=== PATIENT | male | born 1950 | race Caucasian/White ===

== ENCOUNTER 2017-09-02 14:46 | Inpatient (IN) | payer MEDICARE, OTHER ==
[~2017-09-02] VITALS: Ht 170.2 cm; Wt 80.6 kg
[2017-09-02 15:22] LABS: Source, Urine Clean Catch
[2017-09-02 15:24] LABS: Influenza A Negative (NEGATIVE); Influenza B Negative (NEGATIVE)
[2017-09-02 15:24] LABS: Appearance, Urine Hazy (Clear); Blood, Urine 3+ (Neg); Color, Urine Yellow (P-Yellow); Glucose Qualitative, Urine 1+ (Neg); Ketones, Urine 1+ (Neg); Leukocyte Esterase, Urine 2+ (Neg); Nitrite, Urine Neg (Neg); Protein, Urine 3+ (Neg); Specific Gravity, Urine 1.025 (1.003-1.022); Urobilinogen, Urine 2+ (Normal)
[2017-09-02 15:33] LABS: Bilirubin, Urine 2+ (Neg)
[2017-09-02 15:46] LABS: BASOPHILS ABSOLUTE AUTO 0.01 K/mm3 (0.00-0.23); BASOPHILS PERCENT AUTO 0 % (0-2); EOSINOPHILS PERCENT AUTO 0 % (0-6); Hematocrit 42.6 % (37.0-53.0); Hemoglobin 15.6 g/dL (13.5-17.5); IMMATURE GRAN ABSOLUTE AUTO 0.03 K/mm3 (0.00-0.10); IMMATURE GRAN PERCENT AUTO 0 % (0-1); LYMPHOCYTES PERCENT AUTO 10 % (21-46); MONOCYTES ABSOLUTE AUTO 0.73 K/mm3 (0.16-1.47); MONOCYTES PERCENT AUTO 11 % (4-13); Mean Corpuscular HGB 30.2 pg (26.0-34.0); Mean Corpuscular HGB Conc 36.6 g/dL (31.5-36.5); Mean Corpuscular Volume 82 fL (80-100); Mean Platelet Volume 10.8 fL (9.1-12.4); NEUTROPHILS ABSOLUTE AUTO 5.51 K/mm3 (1.96-9.15); NEUTROPHILS PERCENT AUTO 79 % (41-73); Platelet Count 200 K/mm3 (150-400); Red Blood Cell Count 5.17 M/mm3 (4.30-5.90); White Blood Cell Count 6.98 K/mm3 (4.00-11.30)
[2017-09-02 15:48] LABS: Amorphous Light (0-Heavy); Bacteria Few /hpf; Squamous Epithelial Cells Mod /hpf (Few)
[2017-09-02 16:00] LABS: Alanine Aminotransfer (ALT/SGP 39 U/L (12-78); Albumin, Blood 3.5 g/dL (3.4-5.0); Albumin/Globulin Ratio 0.7 (0.8-1.8); Alk Phos 90 U/L (50-136); Anion Gap 12 mmol/L (6-16); Aspartate Aminotrans (AST/SGOT 38 U/L (12-37); Bilirubin, Total 1.9 mg/dL (0.1-1.0); Blood Urea Nitrogen 38 mg/dL (8-24); Bun/Creatinine Ratio 27.7 (12.0-20.0); CO2, Blood 26 mmol/L (21-32); Calcium, Blood 8.3 mg/dL (8.5-10.1); Chloride, Blood 90 mmol/L (98-108); Creatinine, Blood 1.37 mg/dL (0.60-1.20); Globulin, Blood 5.1 g/dL (2.2-4.0); Glomerular Filtration Rate 55 (60-); Glucose, Blood 259 mg/dL (70-99); Potassium, Blood 3.7 mmol/L (3.5-5.5); Sodium, Blood 128 mmol/L (136-145); Total Protein, Blood 8.6 g/dL (6.4-8.2); Troponin I <0.015 ng/mL (0.000-0.040)
[2017-09-02] MEDS ORDERED: ATOR80 PO (16:58)
[2017-09-02] MEDS ORDERED: LEVSOD150 PO (16:58)
[2017-09-02] MEDS ORDERED: Zestril40 MG (16:58)
[2017-09-02] MEDS ORDERED: PIOG30 PO (16:59)
[2017-09-02] MEDS ORDERED: Mobic15 MG PO (16:59)
[2017-09-02 22:33] LABS: Source, Urine Clean Catch
[2017-09-02 22:39] LABS: Bilirubin, Urine Neg (Neg); Blood, Urine 2+ (Neg); Glucose Qualitative, Urine Neg (Neg); Ketones, Urine Neg (Neg); Leukocyte Esterase, Urine 1+ (Neg); Nitrite, Urine Neg (Neg); Protein, Urine 2+ (Neg); Urobilinogen, Urine 1+ (Normal)
[2017-09-02 22:46] LABS: Appearance, Urine Clear (Clear); Color, Urine Yellow (P-Yellow); Red Blood Cells, Urine Rare /hpf (0-2)
[2017-09-02 22:47] LABS: Bacteria Not Seen /hpf; Squamous Epithelial Cells Not Seen /hpf (Few)
[2017-09-02] MEDS ORDERED: METF500C PO (22:58)
[2017-09-03 04:30] LABS: BASOPHILS ABSOLUTE AUTO 0.01 K/mm3 (0.00-0.23); BASOPHILS PERCENT AUTO 0 % (0-2); EOSINOPHILS PERCENT AUTO 0 % (0-6); Hematocrit 33.5 % (37.0-53.0); Hemoglobin 12.2 g/dL (13.5-17.5); IMMATURE GRAN ABSOLUTE AUTO 0.02 K/mm3 (0.00-0.10); IMMATURE GRAN PERCENT AUTO 0 % (0-1); LYMPHOCYTES ABSOLUTE AUTO 1.02 K/mm3 (0.84-5.20); LYMPHOCYTES PERCENT AUTO 18 % (21-46); MONOCYTES ABSOLUTE AUTO 0.59 K/mm3 (0.16-1.47); MONOCYTES PERCENT AUTO 10 % (4-13); Mean Corpuscular HGB 30.5 pg (26.0-34.0); Mean Corpuscular HGB Conc 36.4 g/dL (31.5-36.5); Mean Corpuscular Volume 84 fL (80-100); NEUTROPHILS ABSOLUTE AUTO 4.15 K/mm3 (1.96-9.15); NEUTROPHILS PERCENT AUTO 72 % (41-73); Platelet Count 176 K/mm3 (150-400); RDW Standard Deviation 39.8 fL (35.1-46.3); White Blood Cell Count 5.79 K/mm3 (4.00-11.30)
[2017-09-03 04:54] LABS: Anion Gap 10 mmol/L (6-16); Blood Urea Nitrogen 31 mg/dL (8-24); Bun/Creatinine Ratio 34.5 (12.0-20.0); CO2, Blood 27 mmol/L (21-32); Calcium, Blood 7.2 mg/dL (8.5-10.1); Chloride, Blood 97 mmol/L (98-108); Glomerular Filtration Rate >60 (60-); Glucose, Blood 188 mg/dL (70-99); Potassium, Blood 3.2 mmol/L (3.5-5.5); Sodium, Blood 134 mmol/L (136-145)
[2017-09-03 12:58] LABS: Percent Saturation 10.5 % (20.0-50.0)
[2017-09-04 04:56] LABS: BASOPHILS ABSOLUTE AUTO 0.01 K/mm3 (0.00-0.23); BASOPHILS PERCENT AUTO 0 % (0-2); EOSINOPHILS ABSOLUTE AUTO 0.01 K/mm3 (0.00-0.68); EOSINOPHILS PERCENT AUTO 0 % (0-6); Hemoglobin 11.6 g/dL (13.5-17.5); IMMATURE GRAN ABSOLUTE AUTO 0.04 K/mm3 (0.00-0.10); IMMATURE GRAN PERCENT AUTO 1 % (0-1); LYMPHOCYTES ABSOLUTE AUTO 1.37 K/mm3 (0.84-5.20); LYMPHOCYTES PERCENT AUTO 26 % (21-46); MONOCYTES ABSOLUTE AUTO 0.54 K/mm3 (0.16-1.47); MONOCYTES PERCENT AUTO 10 % (4-13); Mean Corpuscular HGB 30.7 pg (26.0-34.0); Mean Corpuscular HGB Conc 36.3 g/dL (31.5-36.5); Mean Corpuscular Volume 85 fL (80-100); Mean Platelet Volume 10.5 fL (9.1-12.4); NEUTROPHILS ABSOLUTE AUTO 3.28 K/mm3 (1.96-9.15); NEUTROPHILS PERCENT AUTO 62 % (41-73); Platelet Count 185 K/mm3 (150-400); RDW Coefficient Variation 13.1 % (11.7-14.2); RDW Standard Deviation 40.7 fL (35.1-46.3); Red Blood Cell Count 3.78 M/mm3 (4.30-5.90); White Blood Cell Count 5.25 K/mm3 (4.00-11.30)
[2017-09-04 05:11] LABS: Anion Gap 8 mmol/L (6-16); Blood Urea Nitrogen 13 mg/dL (8-24); Bun/Creatinine Ratio 20.1 (12.0-20.0); CO2, Blood 26 mmol/L (21-32); Chloride, Blood 104 mmol/L (98-108); Creatinine, Blood 0.65 mg/dL (0.60-1.20); Glomerular Filtration Rate >60 (60-); Glucose, Blood 126 mg/dL (70-99); Potassium, Blood 3.1 mmol/L (3.5-5.5); Sodium, Blood 138 mmol/L (136-145)
== END 2017-09-04 17:50 | disposition home or self-care (01) | DRG 871 ==
LOC: ER 14:46 → PCU 21:00 → MEDS 22:00 → PCU 22:20 → MEDS 09-03 18:07
PROVIDERS: Emergency Medicine; Internal Medicine; Nurse Practitioner Acute Care
DX: A41.9 Sepsis, unspecified organism (principal); J18.9 Pneumonia, unspecified organism; N17.9 Acute kidney failure, unspecified; E87.1 Hypo-osmolality and hyponatremia; R65.20 Severe sepsis without septic shock; E03.9 Hypothyroidism, unspecified; E78.5 Hyperlipidemia, unspecified; Z66 Do not resuscitate; E11.65 Type 2 diabetes mellitus with hyperglycemia; E11.22 Type 2 diabetes mellitus with diabetic chronic kidney disease; I12.9 Hypertensive chronic kidney disease with stage 1 through stage 4 chronic kidney disease, or unspecified chronic kidney disease; N18.1 Chronic kidney disease, stage 1; D63.1 Anemia in chronic kidney disease; E86.0 Dehydration
CPT/HCPCS: 36415; 71046; 80048; 80053; 81001; 82728; 82947; 83540; 83550; 83605; 83880; 84484; 85025; 87086; 87449; 87804; 93005; 93010; 96365; 96375; 99285; J1644; J1815; J1956; J2405; J7030; J7040

== ENCOUNTER 2020-01-03 23:08 | Emergency (ER) | payer MEDICARE, OTHER ==
[~2020-01-03] VITALS: Ht 177.8 cm; Wt 102.1 kg
[~2020-01-03 23:08] MED LIST: ATOR80 PO; Aspir-Low81 MG PO; LEVSOD150 PO; METF500C PO; Mobic15 MG PO; PIOG30 PO; Zestril40 MG
[2020-01-03 23:30] LABS: BASOPHILS ABSOLUTE AUTO 0.03 K/mm3 (0.00-0.23); BASOPHILS PERCENT AUTO 0 % (0-2); EOSINOPHILS ABSOLUTE AUTO 0.16 K/mm3 (0.00-0.68); EOSINOPHILS PERCENT AUTO 2 % (0-6); Hematocrit 40.1 % (37.0-53.0); Hemoglobin 14.2 g/dL (13.5-17.5); IMMATURE GRAN ABSOLUTE AUTO 0.02 K/mm3 (0.00-0.10); IMMATURE GRAN PERCENT AUTO 0 % (0-1); LYMPHOCYTES ABSOLUTE AUTO 2.56 K/mm3 (0.84-5.20); LYMPHOCYTES PERCENT AUTO 34 % (21-46); MONOCYTES ABSOLUTE AUTO 0.64 K/mm3 (0.16-1.47); MONOCYTES PERCENT AUTO 8 % (4-13); Mean Corpuscular HGB 31.5 pg (26.0-34.0); Mean Corpuscular HGB Conc 35.4 g/dL (31.5-36.5); Mean Corpuscular Volume 89 fL (80-100); Mean Platelet Volume 10.5 fL (9.1-12.4); NEUTROPHILS ABSOLUTE AUTO 4.17 K/mm3 (1.96-9.15); NEUTROPHILS PERCENT AUTO 55 % (41-73); Platelet Count 166 K/mm3 (150-400); RDW Standard Deviation 42.5 fL (35.1-46.3); Red Blood Cell Count 4.51 M/mm3 (4.30-5.90); White Blood Cell Count 7.58 K/mm3 (4.00-11.30)
[2020-01-03 23:45] LABS: Anion Gap 9 mmol/L (6-16); Blood Urea Nitrogen 18 mg/dL (8-24); Bun/Creatinine Ratio 26.2 (12.0-20.0); CO2, Blood 24 mmol/L (21-32); Calcium, Blood 8.3 mg/dL (8.5-10.1); Chloride, Blood 106 mmol/L (98-108); Creatinine, Blood 0.69 mg/dL (0.60-1.20); Glomerular Filtration Rate >60 (60-); Glucose, Blood 292 mg/dL (70-99); Potassium, Blood 3.5 mmol/L (3.5-5.5); Sodium, Blood 139 mmol/L (136-145)
== END 2020-01-04 01:25 | disposition home or self-care (01) ==
LOC: ER 23:08
PROVIDERS: Emergency Medicine
DX: F10.129 Alcohol abuse with intoxication, unspecified (principal); I10 Essential (primary) hypertension; Z79.82 Long term (current) use of aspirin; Z79.84 Long term (current) use of oral hypoglycemic drugs; Z79.899 Other long term (current) drug therapy
CPT/HCPCS: 70450; 80048; 85025; 96360; 96361; 99285-25; A9270-GY; J7030

== ENCOUNTER 2022-07-17 14:06 | Inpatient (IN) | payer MEDICARE, OTHER ==
[~2022-07-17] VITALS: Ht 170.2 cm; Wt 86.9 kg
[~2022-07-17 14:06] MED LIST changes: +ASPIR 8181 M1 PO; -Aspir-Low81 MG PO
[2022-07-17 14:51] LABS: BASOPHILS ABSOLUTE AUTO 0.05 K/mm3 (0.00-0.23); BASOPHILS PERCENT AUTO 1 % (0-2); EOSINOPHILS ABSOLUTE AUTO 0.17 K/mm3 (0.00-0.68); EOSINOPHILS PERCENT AUTO 2 % (0-6); Hemoglobin 15.3 g/dL (13.5-17.5); IMMATURE GRAN ABSOLUTE AUTO 0.02 K/mm3 (0.00-0.10); IMMATURE GRAN PERCENT AUTO 0 % (0-1); LYMPHOCYTES ABSOLUTE AUTO 1.78 K/mm3 (0.84-5.20); LYMPHOCYTES PERCENT AUTO 25 % (21-46); MONOCYTES ABSOLUTE AUTO 0.61 K/mm3 (0.16-1.47); MONOCYTES PERCENT AUTO 9 % (4-13); Mean Corpuscular HGB 31.2 pg (26.0-34.0); Mean Corpuscular HGB Conc 35.6 g/dL (31.5-36.5); Mean Corpuscular Volume 88 fL (80-100); Mean Platelet Volume 11.3 fL (9.1-12.4); NEUTROPHILS PERCENT AUTO 63 % (41-73); Platelet Count 231 K/mm3 (150-400); RDW Coefficient Variation 12.3 % (11.7-14.2); RDW Standard Deviation 39.4 fL (35.1-46.3); Red Blood Cell Count 4.91 M/mm3 (4.30-5.90); White Blood Cell Count 7.03 K/mm3 (4.00-11.30)
[2022-07-17] MEDS ORDERED: JARDIANCE10 MG PO (15:01)
[2022-07-17] MEDS ORDERED: EUTHYROX125 MC1 PO (15:02)
[2022-07-17] MEDS ORDERED: METFORMIN HCL500 M3 PO (15:02)
[2022-07-17] MEDS ORDERED: AMLODIPINE BESYL5 MG PO (15:02)
[2022-07-17] MEDS ORDERED: OMEP20ER PO (15:03)
[2022-07-17 15:15] LABS: Albumin/Globulin Ratio 0.9 (0.8-1.8); Bilirubin, Total 1.7 mg/dL (0.1-1.0); Bun/Creatinine Ratio 20.2 (12.0-20.0); Calcium, Blood 9.2 mg/dL (8.5-10.1); Creatinine, Blood 0.79 mg/dL (0.60-1.20); Globulin, Blood 4.5 g/dL (2.2-4.0); Total Protein, Blood 8.5 g/dL (6.4-8.2)
[2022-07-17 18:43] VITALS: BP 153/88
[2022-07-17 19:30] VITALS: BP 138/76
[2022-07-18] VITALS (7 sets, daily range): BP systolic 139–175; BP diastolic 76–90
--- NOTE | 2022-07-18 02:35 | NUR ---
PT HAS HAD TELEMETRY MONITORING IN PLACE THROUGHOUT SHIFT. WITHIN PAST HALF HOUR, PT BRIEFLY DIPPED DOWN TO ~41 BPM WHILE SLEEPING. ASYMPTOMATIC, CONTINUED TO REST PEACEFULLY DURING EVENT. NOTIFIED HOSPITALIST DR. CROSS. DIRECTED TO DC ANY BETA BLOCKERS AND CONTINUE TO MONITOR. NO BETA BLOCKERS CURRENTLY ORDERED. WILL CONTINUE TO MONITOR.
--- NOTE | 2022-07-18 03:41 | NUR ---
SHIFT MOSTLY UNREMARKABLE. PT FAMILY WAS IN ROOM UNTIL CLOSE TO MIDNIGHT. LONG DISCUSSION WITH FAMILY REGARDING PT CODE STATUS. PT AND FAMILY WOULD LIKE TO HAVE HIM DOWN A FULL CODE WITH POWER OF DECISION MAKING TO BE LEFT TO HIS SHOULD HE BE UNABLE TO MAKE DECISIONS FOR HIMSELF. CALLED HOSPITALIST AND GOT ORDER TO MAKE PT FULL CODE. PROVIDED PT WITH ADVANCE DIRECTIVES FORMS TO SIGN AND BROCHURE EXPLAINING SPECIFICS. PT VOICED UNDERSTANDING. TELE ON THROUGH EVENING. WNL OUTSIDE OF BRIEF EPISODE OF BRADYCARDIA EARLY THIS MORNING. SEE RELATED NOTE FOR DETAILS. PT HAS BEEN NPO SINCE MIDNIGHT PENDING POSSIBLE ANGIOGRAM THIS AFTERNOON. CALLED FOR CARDIOLOGY CONSULT. SHIFT OTHERWISE UNREMARKABLE. BED LOCKED IN LOWEST POSITION. CALL LIGHT LEFT WITHIN REACH.
[2022-07-18 08:28] LABS: Bun/Creatinine Ratio 25.7 (12.0-20.0); Calcium, Blood 8.4 mg/dL (8.5-10.1); Creatinine, Blood 0.74 mg/dL (0.60-1.20); Potassium, Blood 3.7 mmol/L (3.5-5.5)
--- NOTE | 2022-07-18 17:22 | NUR ---
PT TRANSFERED FROM MEDICAL FLOOR TO INTERACTIVE PROJECT MANAGER FOR ANGIOGRAM AT APPROXIMATELY 1530. WILL CONTINUE RECEIVING CARE IN PROGRESSIVE CARE UNIT FOLLOWING PROCEDURE.
--- NOTE | 2022-07-18 18:30 | NUR ---
RN DAY SHIFT SUMMARY PATIENT COMES TO PCU FROM THE HC FOLLOWING ANGIO. PATIENT IS ALERT AND WELL MANORED WITH VITALS Q15M AND CONTINUEING VIA PROTOCOL. PATIENT IS CURRENTLY EATING DINNER WILE BEING VISITED BY FAMILY.
--- NOTE | 2022-07-18 21:41 | NUR ---
TRANSFER OF CARE NOTE PT IS A/Ox4 AND COOPERATIVE WITH CARE PROVIDED BY [facility] OF STAFF. ANSWERS QUESTIONS APPROPRIATELY AND ABLE TO MAKE HIS NEEDS KNOWN. EMS ARRIVED ~2100 THIS PM PENDING PT TRANSFER TO [facility] FOR CONTINUATION OF CARE. FIDEL WILKES, HR IS SB-SR 50-60'S WITH NO REPORTS OF CP OR PRESSURE DURING MY TIME WITH THE PT. SBP HAS BEEN SLIGHTLY ELEVATED IN THE 150-160'S. RESPIRATORY WILKES, MAINTAINS SPO2 >94% ON RA WITH NO C/O SOB OR DYSPNEA. PT WAS ABLE TO STAND UP AND TRANSFER TO [facility] W/O ASSITANCE. RIGHT RADIAL ACCESS SITE FROM ANGIO DURING DAYSHIFT WAS NOT FULLY RECOVERED UPON TRANSFER. TR BAND REMAINED IN PLACE, BUT EMS EDUCATED ON TR BAND RECOVERY PROCESS AND GIVEN TR BAND SYRINGE FOR TRANSPORT. ANGIO SITE IS FREE OF ANY BLEEDING, HEMATOMA, SWELLING, OR TENDERNESS. PULSES PRESENT ABOVE AND BELOW SITE. HAND WARM TO THE TOUCH WITH NO REPROTS OF TINGLING OR SENSATION LOSS AT THIS TIME. ARMBOARD IN PLACE TO PROTECT SITE WELL. ALL QUESTIONS BY EMS AND FAMILY ANSWERED. HADLEY CHILEL UPON TRANSFER
--- NOTE | 2022-07-19 04:51 | NUR ---
BELLO CALLED REPORT TO RAYSA WARD AT [facility] AROUND [id number] ON 07/18/22. ALL QUESTIONS ANSWERED, GAVE RN PCU NUMBER IF THEY HAVE ANY FURTHER QUESTIONS.
== END 2022-07-18 21:30 | disposition short-term general hospital (02) | DRG 287 ==
LOC: ER 14:06 → MEDS 14:07 → PCU 14:07 → MEDS 14:07 → PCU 07-18 16:07
PROVIDERS: Internal Medicine; Physician Assistant; ADMIT Internal Medicine
PROC: 4A023N7 Measurement of Cardiac Sampling and Pressure, Left Heart, Percutaneous Approach (ICD-10-PCS; principal; 2022-07-18)
PROC: B2111ZZ Fluoroscopy of Multiple Coronary Arteries using Low Osmolar Contrast (ICD-10-PCS; 2022-07-18)
PROC: B240ZZ3 Ultrasonography of Single Coronary Artery, Intravascular (ICD-10-PCS; 2022-07-18)
DX: I25.119 Atherosclerotic heart disease of native coronary artery with unspecified angina pectoris (principal); E11.9 Type 2 diabetes mellitus without complications; I10 Essential (primary) hypertension; E78.5 Hyperlipidemia, unspecified; E03.9 Hypothyroidism, unspecified; D50.9 Iron deficiency anemia, unspecified; Z66 Do not resuscitate; E66.9 Obesity, unspecified; R94.31 Abnormal electrocardiogram [ECG] [EKG]; K21.9 Gastro-esophageal reflux disease without esophagitis; Z79.02 Long term (current) use of antithrombotics/antiplatelets; Z98.890 Other specified postprocedural states; Z79.899 Other long term (current) drug therapy; Z79.82 Long term (current) use of aspirin; Z68.30 Body mass index [BMI] 30.0-30.9, adult; Z79.811 Long term (current) use of aromatase inhibitors; Z79.84 Long term (current) use of oral hypoglycemic drugs
CPT/HCPCS: 36415; 71046; 76937; 80048; 80053; 82947; 83690; 84484; 85025; 93005; 93010; 93306; 93454; 96372; 99152; 99285-25; A9270; C1769; C1887; C1894; G0378; J1644; J1650; J2250; J3010; J7030; J7050; Q9967

== ENCOUNTER 2023-11-24 13:46 | Emergency (ER) | payer MEDICARE, OTHER ==
[~2023-11-24] VITALS: Ht 170.2 cm; Wt 84.4 kg
[~2023-11-24 13:46] MED LIST changes: +AMLODIPINE BESYL5 MG PO; +EUTHYROX125 MC1 PO; +JARDIANCE10 MG PO; +METFORMIN HCL500 M3 PO; +OMEP20ER PO
[2023-11-24 13:57] VITALS: BP 123/74
[2023-11-24] MEDS ORDERED: Diphth,Pertuss(Acell),Tet Vac 0.5 ML VIAL IM ONE (14:00)
== END 2023-11-24 16:00 | disposition home or self-care (01) ==
LOC: ER 13:46
DX: S51.812A Laceration without foreign body of left forearm, initial encounter (principal); I10 Essential (primary) hypertension; W27.0XXA Contact with workbench tool, initial encounter; Z79.82 Long term (current) use of aspirin; Z79.84 Long term (current) use of oral hypoglycemic drugs; Z79.899 Other long term (current) drug therapy
CPT/HCPCS: 12002; 90471; 90715; 99283-25

== ENCOUNTER 2024-09-16 11:20 | Emergency (ER) | payer MEDICARE, BC ==
[~2024-09-16] VITALS: Ht 170.2 cm; Wt 84.4 kg
[2024-09-16 12:10] LABS: BASOPHILS ABSOLUTE AUTO 0.05 K/mm3 (0.00-0.23); BASOPHILS PERCENT AUTO 1 % (0-2); EOSINOPHILS ABSOLUTE AUTO 0.15 K/mm3 (0.00-0.68); EOSINOPHILS PERCENT AUTO 2 % (0-6); Hematocrit 42.0 % (37.0-53.0); Hemoglobin 15.1 g/dL (13.5-17.5); IMMATURE GRAN ABSOLUTE AUTO 0.01 K/mm3 (0.00-0.10); IMMATURE GRAN PERCENT AUTO 0 % (0-1); LYMPHOCYTES ABSOLUTE AUTO 2.49 K/mm3 (0.84-5.20); LYMPHOCYTES PERCENT AUTO 36 % (21-46); MONOCYTES ABSOLUTE AUTO 0.71 K/mm3 (0.16-1.47); MONOCYTES PERCENT AUTO 10 % (4-13); Mean Corpuscular HGB Conc 36.0 g/dL (31.5-36.5); Mean Corpuscular Volume 88 fL (80-100); NEUTROPHILS ABSOLUTE AUTO 3.48 K/mm3 (1.96-9.15); NEUTROPHILS PERCENT AUTO 51 % (41-73); NRBC ABSOLUTE 0.00 K/mm3 (0.00-0.02); NRBC Auto 0.0 /100 WBC (0.0-0.2); Platelet Count 218 K/mm3 (150-400); RDW Coefficient Variation 13.1 % (11.7-14.2); RDW Standard Deviation 42.4 fL (35.1-46.3)
[2024-09-16] MEDS ORDERED: Ketorolac Tromethamine 30mg Vial IV ONE (12:40)
[2024-09-16] MEDS ORDERED: Methyl Salicylate/Menth/Camph 57 GM TUBE TOP ONE (12:40)
[2024-09-16 12:46] LABS: Alanine Aminotransfer (ALT/SGP 29.0 U/L (12-78); Albumin, Blood 4.2 g/dL (3.4-5.0); Albumin/Globulin Ratio 1.1 (0.8-1.8); Anion Gap 10.0 mmol/L (3-11); Aspartate Aminotrans (AST/SGOT 21.0 U/L (12-37); Bilirubin, Total 1.6 mg/dL (0.1-1.0); Blood Urea Nitrogen 30.0 mg/dL (8-24); CO2, Blood 28.0 mmol/L (21-32); Calcium, Blood 9.3 mg/dL (8.5-10.1); Chloride, Blood 101.0 mmol/L (98-108); Creatinine, Blood 1.17 mg/dL (0.60-1.20); Globulin, Blood 3.9 g/dL (2.2-4.0); Glucose, Blood 182.0 mg/dL (70-99); Potassium, Blood 3.7 mmol/L (3.5-5.5); Sodium, Blood 135.0 mmol/L (136-145); Total Protein, Blood 8.1 g/dL (6.4-8.2)
[2024-09-16] MEDS ORDERED: Robaxin750 MG PO (14:48)
[2024-09-16 15:35] VITALS: BP 137/94
== END 2024-09-16 15:35 | disposition home or self-care (01) ==
LOC: ER 11:20
PROVIDERS: Physician Assistant
DX: S46.812A Strain of other muscles, fascia and tendons at shoulder and upper arm level, left arm, initial encounter (principal); R07.9 Chest pain, unspecified; X58.XXXA Exposure to other specified factors, initial encounter; I10 Essential (primary) hypertension; E11.9 Type 2 diabetes mellitus without complications; I25.10 Atherosclerotic heart disease of native coronary artery without angina pectoris; E78.5 Hyperlipidemia, unspecified; E03.9 Hypothyroidism, unspecified; Z95.1 Presence of aortocoronary bypass graft; Z79.890 Hormone replacement therapy; Z79.82 Long term (current) use of aspirin; Z79.84 Long term (current) use of oral hypoglycemic drugs; Z79.899 Other long term (current) drug therapy
CPT/HCPCS: 71046; 80053; 84484; 85025; 93005; 93010; 96374; 99284-25; A9270; J1885